=== PATIENT | female | born 2000 | race Caucasian/White ===

== ENCOUNTER 2025-03-15 20:30 | Emergency (ER) | payer BC, SELFPAY ==
[2025-03-15 20:34] VITALS: BP 155/92
--- NOTE | 2025-03-15 22:22 | ED.GENMED ---
History of Present Illness
General
Chief Complaint: Psychiatric Problem
Source: patient
Exam Limitations: none
Time Seen by Provider: 03/15/25 22:14
History of Present Illness
History of Present Illness:
See MDM
Past History
Past History
ED Past Medical History: Psychiatric
ED Past Surgical History: Other ([place] teeth)
Social History
Tobacco: Non-smoker
Alcohol: None
Phy Exam
Physical Exam
Physical Exam:
See MDM
Course
Orders/Labs/Results
Orders:
Orders
03/15/25 20:40
1:1 Observation - Suicide/ Violent Behavior As Directed
03/15/25 21:28
Crisis Consult Urgent
Reason for Consult: WANTED TO OVERDOSE SO SHE WOULD
Vital Signs
Initial and Last Documented VS:
Initial Vital Signs
Temp Pulse Resp BP Pulse Ox
98.4 F 108 16 155/92 96
03/15/25 20:34 03/15/25 20:34 03/15/25 20:34 03/15/25 20:34 03/15/25 20:34
Last Documented Vital Signs
Temp Pulse Resp BP Pulse Ox
98.4 F 108 16 155/92 96
03/15/25 20:34 03/15/25 20:34 03/15/25 20:34 03/15/25 20:34 03/15/25 20:34
MDM/Problems Addressed
Differential Diagnosis Includes:
HPI and MDM Narrative:
24-year-old female presenting for evaluation of increased anxiety and stress. She has had suicidal thoughts for about a month. She talked to her therapist and it was recommended that she seek help for possible inpatient treatment. She presents
with her mother. She does have a plan of overdosing on her prescribed medications. However, patient states that she has no true thoughts of hurting herself and is emiliana for safety. She does not necessarily want to go inpatient at the
moment. Mother is comfortable with this plan and will lock away her medications. She was seen by crisis who also believes patient is stable for discharge. Patient was given outpatient resources in regards to intensive outpatient versus resources
to go inpatient if he changes her mind
Physical exam
General: Well appearing and non-toxic
HEENT: protecting airway
Neck: appears supple
CV: No evidence of cyanosis
Resp: No accessory muscle use
Abd: Non-distended
Extremities: No deformities
Neuro: alert
Psych: Normal affect
Skin: Intact
Problems Addressed including Acute and Chronic Conditions affecting care:
1. Depression
Acuity: acute
Prognosis: stable
Details: Patient wants to seek outpatient instead of inpatient
Differential Diagnosis (but not limited to): Depression, suicidal thoughts
Testing considered: UDS
Drug therapy (if applicable): OTC meds, please see d/c instruction regarding Rx drugs
Amount and/or Complexity of Data Reviewed
Clinical info obtained from: Patient
External data reviewed: N/A
Labs I independently reviewed (but not limited to): N/A
Radiology: N/A
Pulse Ox: not hypoxic
EKG independently reviewed: N/A
Chipper: N/A
Critical Care: N/A
Risk of Complication:
Social Determinants of health: Good social support
Discussed with other providers: Crisis
Escalation of Care includes Admit/Obs: After being observed in the Emergency Department, pt stable for discharge.
Occasional wrong word or 'sound a like' substitutions may have occurred due to the inherent limitations of voice recognition software. Read the chart carefully and recognize, using context, where substitutions have occurred.
*Pulse Oximetry
SaO2: 96
Oxygen Mode of Delivery: Room air
Patient hypoxic: no
*Critical Care Note
Total Time (30-74mins, 75-104mins- exclusive of procedures): Not Applicable
ED Attending Note
-
Portions of this chart may have been created with voice recognition software.� Occasional wrong word or��sound alike� substitutions may have occurred due to the inherent limitations of voice recognition software.
Discharge Plan
Departure
Patient Disposition: Home (Routine Discharge)
Date of Disposition: 03/15/25
Time of Disposition: 22:24
Patient with high blood pressure during this ER visit?: Yes
Discharge Problem:
Depression
Instructions: Depression, Adult (DC)
Activity Restrictions/Additional Instructions:
Please return for any worsening symptoms.
You may return at any time if you have further concerns.
Please follow up with your doctor at the first available appointment, preferably this week. Please refer to the resources provided by crisis.
Interventions
Interventions:
*Risk Screen - Suicide Last Done: 03/15/25 20:34
*Neglect/Abuse Screening Last Done: 03/15/25 20:34
ED-Psychological Assessment Last Done: 03/15/25 21:01
Discharge Date and Time
Print Language: [place]
== END 2025-03-15 22:47 | disposition home or self-care (01) ==
LOC: EMR 20:30
PROVIDERS: EMERGENCY PHYSICIAN Student in an Organized Health Care Education/Training Program; FAMILY PHYSICIAN Internal Medicine
DX: F32.A Depression, unspecified (principal)
CPT/HCPCS: 99282

== ENCOUNTER 2025-06-02 09:06 | Emergency (ER) | payer BC, SELFPAY ==
[2025-06-02 09:09] VITALS: BP 133/78
[2025-06-02 09:10] VITALS: BP 133/78
--- NOTE | 2025-06-02 09:38 | ED.GENMED ---
ED Provider Triage
<Rafael Wright MD, Resident - Last Filed: 06/02/25 11:48>
-
Patient seen by provider in Triage?: Seen in Triage
History of Present Illness
<Rafael Wright MD, Resident - Last Filed: 06/02/25 11:48>
General
Chief Complaint: Weakness
Source: patient
Exam Limitations: none
Time Seen by Provider: 06/02/25 09:07
History of Present Illness
History of Present Illness:
24 y/o female who presents with sudden onset fatigue, ' eyes feel tired' while driving to work, then experienced loss of balance, weakness at work. Onset of symptoms were sudden, relieved on sitting down, currently improving. No numbness, tingling,
syncope, focal neurological deficits, visual changes, abdominal pain, nausea/ vomiting. She has had several episodes similar to this in the past 1 year, which resolved on their own . She has a PMH of depression, bipolar, PTSD, anxiety. She is
currently on Lamictal, lithium, and OCP's. No drug alcohol use. 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 Currently has suicidal ideations but no active plan, see's a
pyschiatrist.
Past History
<Rafael Wright MD, Resident - Last Filed: 06/02/25 11:48>
Past History
ED Past Medical History: Psychiatric
ED Past Surgical History: Other ([place] teeth)
Social History
Tobacco: Non-smoker
Alcohol: None
Review of Systems
<Rafael Wright MD, Resident - Last Filed: 06/02/25 11:48>
Review of Systems
All Other Systems: ROS reviewed and negative except as documented in HPI and ROS
Phy Exam
<Rafael Wright MD, Resident - Last Filed: 06/02/25 11:48>
General Physical Exam
General Presentation: well appearing and no apparent distress
General Skin: warm and dry
General Habitus: normal and obese
General Mental: alert
Cardiovascular Exam
Cardiovascular Exam: regular rate/rhythm, no edema, no gallop, no murmur and normal peripheral pulses
Pulmonary Exam
Pulmonary Exam: lungs clear and no respiratory distress
Gastrointestinal Exam
Gastrointestinal Exam: normal bowel sounds, non tender, soft and non distended
Neurological Exam
Neurological Exam: alert, oriented x3, CN II-XII intact, no motor deficits, normal reflexs, no sensory deficits and speech normal
Musculoskeletal Exam
Musculoskeletal Exam: full ROM and no edema
Psychiatric Exam
Psychiatric Exam: normal mood/affect
Course
<Rafael Wright MD, Resident - Last Filed: 06/02/25 11:48>
Orders/Labs/Results
Orders:
Orders
06/02/25 09:36
EKG [Electrocardiogram (*1)] Urgent
Reason for Study: Fatigue / Weakness
EKG- Treatment ONCE
06/02/25 09:37
Test Result ONCE
06/02/25 09:41
CBC/With Diff [Complete Blood Count/With Diff] Urgent
Free T4 Urgent
Jet Urgent
TSH Reflex To Free T4 Urgent
06/02/25 10:32
Comprehensive Metabolic Panel Urgent
HCG, Serum Qualitative Screen Urgent
Abnormal Lab Results
06/02/25 06/02/25
09:41 10:32
Chloride 108 H mmol/L
(98-107)
Glucose 132 H mg/dl
(70-99)
TSH (Reflex) < 0.02 L uIU/ml
(0.47-4.68)
Jet 0.4 L mmol/L
(0.6-1.2)
06/02/25 09:41
09/30/25 10:32
Vital Signs
Initial and Last Documented VS:
Initial Vital Signs
Temp Pulse Resp BP Pulse Ox
98.1 F 97 16 133/78 98
06/02/25 09:09 06/02/25 09:09 06/02/25 09:09 06/02/25 09:09 06/02/25 09:09
Last Documented Vital Signs
Temp Pulse Resp BP Pulse Ox
98.1 F 97 16 133/78 99
06/02/25 09:09 06/02/25 09:09 06/02/25 09:09 06/02/25 09:09 06/02/25 09:43
<Rodrigo Nicolas MD - Last Filed: 06/02/25 11:24>
Orders/Labs/Results
Orders:
Orders
06/02/25 09:36
EKG [Electrocardiogram (*1)] Urgent
Reason for Study: Fatigue / Weakness
EKG- Treatment ONCE
06/02/25 09:37
Test Result ONCE
06/02/25 09:41
CBC/With Diff [Complete Blood Count/With Diff] Urgent
Free T4 Urgent
Jet Urgent
TSH Reflex To Free T4 Urgent
06/02/25 10:32
Comprehensive Metabolic Panel Urgent
HCG, Serum Qualitative Screen Urgent
Abnormal Lab Results
06/02/25 06/02/25
09:41 10:32
Chloride 108 H mmol/L
(98-107)
Glucose 132 H mg/dl
(70-99)
TSH (Reflex) < 0.02 L uIU/ml
(0.47-4.68)
Jet 0.4 L mmol/L
(0.6-1.2)
06/02/25 09:41
06/02/25 10:32
Vital Signs
Initial and Last Documented VS:
Initial Vital Signs
Temp Pulse Resp BP Pulse Ox
98.1 F 97 16 133/78 98
06/02/25 09:09 06/02/25 09:09 06/02/25 09:09 06/02/25 09:09 06/02/25 09:09
Last Documented Vital Signs
Temp Pulse Resp BP Pulse Ox
98.1 F 97 16 133/78 99
06/02/25 09:09 06/02/25 09:09 06/02/25 09:09 06/02/25 09:09 06/02/25 09:43
<Rafael Wright MD, Resident - Last Filed: 06/02/25 11:48>
MDM/Problems Addressed
MDM/Problems Addressed:
- test negative
- Jet level is 0.4 and subtherapeutic
- TSH level is low with a normal T4
- CBC and CMP in unremarkable
- EKG is normal
- Patient is clinically stable, no active suicidal plans, with normal labs/ diagnostic studies. Will discharge home with plan to see therapist <7 days.
<Rafael Wright MD, Resident - Last Filed: 06/02/25 11:48>
*Pulse Oximetry
SaO2: 99
Oxygen Mode of Delivery: Room air
*Critical Care Note
Total Time (30-74mins, 75-104mins- exclusive of procedures): Not Applicable
<Rodrigo Nicolas MD - Last Filed: 06/02/25 11:24>
*Pulse Oximetry
Patient hypoxic: no
ED Attending Note
<Rafael Wright MD, Resident - Last Filed: 06/02/25 11:48>
-
Portions of this chart may have been created with voice recognition software.� Occasional wrong word or��sound alike� substitutions may have occurred due to the inherent limitations of voice recognition software.
<Rodrigo Nicolas MD - Last Filed: 06/02/25 11:24>
ED Attending Note
Patient seen and examined by attending physician: Yes
I performed a history and physical exam of patient and discussed management with resident, I reviewed resident's note and agree with documented findings and plan of care.: Yes
ED Attending Note:
24-year-old female sudden onset of severe tiredness while driving to work this morning. She was slightly groggy when she got up. [place] like she was falling asleep at the wheel. This happened multiple times. This was not a syncopal episode per the
patient. She has had this intermittently in the past and was taken off some medications. There have been no recent adjustments. She denies syncope chest pain shortness of breath unusual headache focal neurologic symptoms etc. She had a brief
suicidal ideation yesterday although mild. She states she gets this about once a month. Yesterday's was a less severe 1. She is currently not suicidal. She has no intent or plan.
On exam patient is nontoxic in no distress. Warm and dry. Perfusing well. Cranial nerves II through XII intact. Speech normal. [id number] normal. No drift. Good lower extremity strength. Regular rate and rhythm no murmur. Lungs clear
and equal.
Impression is transient unusual tiredness. Check electrolytes check thyroid. Check EKG for QTc issue although this is not really described as syncope. Nothing to support an acute neurologic issue. Medically very stable.
Secondarily she has the suicidal ideation that was very mild transient and has been a recurring issue. She has no intent or plan. She is currently not suicidal. I offered to have crisis see her however she states she would prefer to follow-up
with her therapist and psychiatrist herself. I think this is reasonable. Nothing to support a psychiatric committal.
Patient has remained stable and nontoxic. Workup unremarkable. Slightly subtherapeutic lithium level. Not acutely suicidal. Will follow-up with her therapist tomorrow.
Discharge Plan
Departure
Patient Disposition: Home (Routine Discharge)
Date of Disposition: 06/02/25
Time of Disposition: 11:23
Patient with high blood pressure during this ER visit?: Yes
Discharge Problem:
Transient episodic drowsiness, Transient suicidal ideation
Instructions: Generalized Weakness (DC), Depression in adults (DC), BLOOD PRESSURE
Referrals:
Reji Kahn DO [Family Provider, Internal Medicine] - Follow up in 2-3 days
Activity Restrictions/Additional Instructions:
Follow-up with your therapist tomorrow
Interventions
Interventions:
*Risk Screen - Suicide Last Done: 06/02/25 09:09
*General Assessment Last Done: 06/02/25 09:22
*Neglect/Abuse Screening Last Done: 06/02/25 09:09
*ED- Fall Risk Assessment Last Done: 06/02/25 09:22
*ED COVID-19 Vaccine History Last Done: 06/02/25 09:22
*ED Influenza Vaccine History Last Done: 06/02/25 09:22
ED- Cardiac Assessment Last Done: 06/02/25 09:22
ED- Neurological Assessment Last Done: 06/02/25 09:22
ED- Pulmonary Assessment Last Done: 06/02/25 09:22
Discharge Date and Time
Print Language: INDONES[place]
[2025-06-02 10:00] VITALS: BP 114/66
[2025-06-02 10:03] LABS: Lithium 0.4 mmol/L (0.6-1.2)
[2025-06-02 10:07] LABS: Hematocrit 38.5 % (37.0-47.0); Hemoglobin 13.2 g/dL (12.0-16.0); Mean Corp Hgb Conc. 34.3 g/dL (33.0-37.0); Mean Corpuscular Volume 83.2 fL (81.0-99.0); Nucleated Red Blood Cells % 0 %; Platelet Count 352 10^3/uL (130-400); Red Cell Dist. Width 12.9 % (11.5-14.5)
[2025-06-02 10:58] LABS: HCG, Serum Qualitative Screen Negative
[2025-06-02 11:00] VITALS: BP 96/55
[2025-06-02 11:13] LABS: ALT (SGPT) 27 U/L (0-35); AST (SGOT) 24 U/L (14-36); Albumin 3.8 g/dl (3.5-5.0); Alkaline Phosphatase 61 U/L (38-126); Blood Urea Nitrogen 10 mg/dl (7-17); Calcium 9.4 mg/dl (8.4-10.2); Carbon Dioxide 24 mmol/L (22-30); Chloride 108 mmol/L (98-107); Glucose 132 mg/dl (70-99); Potassium 3.9 mmol/L (3.5-5.1); Sodium 137 mmol/L (135-145); Total Protein 6.3 g/dl (6.3-8.2); eGFR > 60.00
== END 2025-06-02 12:19 | disposition home or self-care (01) ==
LOC: EMR 09:06
PROVIDERS: EMERGENCY PHYSICIAN Emergency Medicine; FAMILY PHYSICIAN Internal Medicine
DX: R40.0 Somnolence (principal); R45.851 Suicidal ideations; R03.0 Elevated blood-pressure reading, without diagnosis of hypertension; C73 Malignant neoplasm of thyroid gland; F31.9 Bipolar disorder, unspecified; F43.10 Post-traumatic stress disorder, unspecified; F41.9 Anxiety disorder, unspecified
CPT/HCPCS: 99284; 80053; 80178; 84439; 84443; 84703; 85025; 93005